=== PATIENT | male | born 1980 | race Caucasian/White ===

== ENCOUNTER → 2017-01-17 | Outpatient (CLI) | payer OTHER, SELFPAY ==
[~2017-01-17] MED LIST: IBUPROFEN 400400 M2 PO; UNICOMPLEX M TA1 TA1 PO
== END ==
LOC: CAT 14:17
DX: J32.9 Chronic sinusitis, unspecified (principal); R04.2 Hemoptysis

== ENCOUNTER → 2017-01-21 | Outpatient (CLI) | payer OTHER | LOC: CAT 09:38 | DX: R91.1 Solitary pulmonary nodule (principal); J84.10 Pulmonary fibrosis, unspecified ==

== ENCOUNTER → 2017-01-22 | Outpatient (CLI) | payer OTHER | LOC: ULTRA 09:50 | DX: E04.1 Nontoxic single thyroid nodule (principal) ==

== ENCOUNTER → 2017-07-02 | Outpatient (CLI) | payer OTHER | LOC: ULTRA 07:22 | DX: R94.5 Abnormal results of liver function studies (principal) ==

== ENCOUNTER → 2017-08-30 | Outpatient (CLI) | payer OTHER | LOC: ULTRA 09:30 | DX: E04.1 Nontoxic single thyroid nodule (principal); J34.2 Deviated nasal septum; R09.81 Nasal congestion ==

== ENCOUNTER → 2017-10-28 | Outpatient (CLI) | payer OTHER ==
[~2017-10-28] MED LIST changes: +BUPROPION HCL150 M1 PO; +IBUPROFEN 200200 M1 PO; +NABUMETONE 750750 M1 PO; +TYLENOL EXTRA500 MG PO; +XANAX 0.5 MG0.5 MG PO
== END ==
LOC: MRI 10-16 09:31
DX: M54.2 Cervicalgia (principal); E04.1 Nontoxic single thyroid nodule; M79.602 Pain in left arm; R20.2 Paresthesia of skin

== ENCOUNTER → 2018-02-27 | Outpatient (CLI) | payer OTHER ==
[~2018-02-27] VITALS: Ht 185.4 cm; Wt 96.3 kg
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
[2018-02-27 08:37] VITALS: BP 136/89
== END ==
LOC: PAIN 06:58
DX: M54.12 Radiculopathy, cervical region (principal)

== ENCOUNTER → 2020-07-13 | Outpatient (CLI) | payer BC, OTHER | LOC: LAB 08:40 | PROVIDERS: ATTEND Family Medicine | DX: Z20.828 Contact with and (suspected) exposure to other viral communicable diseases (principal); M79.10 Myalgia, unspecified site ==

== ENCOUNTER → 2020-08-17 | Outpatient (CLI) | payer BC, OTHER | LOC: LAB 14:50 | PROVIDERS: ATTEND Nurse Practitioner | DX: R05 Cough (principal); R50.9 Fever, unspecified; Z20.828 Contact with and (suspected) exposure to other viral communicable diseases ==

== ENCOUNTER 2021-10-30 08:02 | Emergency (ER) | payer BC, OTHER ==
[~2021-10-30] VITALS: Ht 185.4 cm; Wt 95.3 kg
[2021-10-30 08:04] VITALS: BP 151/101
[2021-10-30] MEDS ORDERED: AZITHROMYCIN 2250 MG PO (08:23)
== END 2021-10-30 08:41 | disposition home or self-care (01) ==
LOC: ER 08:02
DX: J32.9 Chronic sinusitis, unspecified (principal); B96.89 Other specified bacterial agents as the cause of diseases classified elsewhere; Z79.899 Other long term (current) drug therapy; Z88.0 Allergy status to penicillin